=== PATIENT | female | born 1955 | race Caucasian/White ===

== ENCOUNTER → 2017-04-09 | Outpatient (CLI) | payer OTHER | LOC: FIMAGING 10:35 | PROVIDERS: ATTEND Nurse Practitioner | DX: R93.8 Abnormal findings on diagnostic imaging of other specified body structures (principal); R10.31 Right lower quadrant pain ==

== ENCOUNTER → 2017-05-14 | Outpatient (CLI) | payer OTHER ==
[~2017-05-14] MED LIST: IOPAMIDOL (ISOVUE-300) 100 ML BTL ONE
== END ==
LOC: FIMAGING 15:19
PROVIDERS: ATTEND Internal Medicine Gastroenterology
DX: K59.00 Constipation, unspecified (principal)
CPT/HCPCS: Q9967

== ENCOUNTER 2018-06-30 20:34 | Emergency (ER) | payer OTHER ==
--- NOTE | 2018-06-30 20:56 | EDPHY ---
HPI/HX/ROS/PE/MDM Narrative: CHIEF COMPLAINT: Right-sided abdominal pain HPI: The patient is a 62 y/o female complaining of a dull, achy, right-sided abdominal pain onset 1 year ago. Due to this pain, she has had numerous imaging and laboratory work ups over the last 8 months. She states that she doesn't have a PCP as she practices holistic medicine. She was most recently been seen by a Dr. Ramos in [place] and a printing roller handler at [facility]. She had a negative work up and was advised to have an oophorectomy. Insurance denied the surgery as well as a CA 125 test. Last weekend the pain occurred for 4 days and was associated with bloating, a decreased appetite, nausea, and inconsistent bowels. Today she is requesting a referral to see a gynecological oncologist, preferably Dr. Suellen Ramos in [place]. She denies taking any medication for the pain. No headache, chest pain, shortness of breath, urinary complaints, vaginal bleeding, numbness, paresthesias, fevers. REVIEW OF SYSTEMS: Aside from elements discussed in the HPI, a comprehensive 10 system review of systems is otherwise negative. PMH: Asthma, x4 SOCIAL HISTORY: Lives in [place], single, employed as an artist PHYSICAL EXAM: General: Patient is alert, in no acute distress. ENT: Eyes are normal to inspection. ENT inspection normal. Neck: Normal inspection. Full range of motion. Respiratory: No respiratory distress. Breath sounds normal bilaterally. Cardiovascular: Regular rate and rhythm. Strong peripheral pulses. Normal cap refill. Abdomen: RLQ tenderness to palpation. There are no peritoneal signs. There are normal bowel sounds. Back: Normal to inspection. No tenderness to palpation. Skin: Normal color. No rash. Warm and dry. Extremities: Normal appearance. Full range of motion. Neuro: Oriented x3. Normal motor function. Normal sensory function. ED Course: 2104: I discussed the risks and benefits associated with an abdominopelvic CT and US. She is comfortable with having laboratory studies in addition to the imaging studies. 2309: Reviewed case in person with Dr. Ambrose - he sees no sign of appendicitis or ovarian mass. Likely fibroid is unchanged from last year. Possible pelvic congestion syndrome. Discussed results with patient - offered US to further investigate pelvis but patient declines. I have agreed to give her a referral to [facility]. - Data Points Laboratory Results: Laboratory Results 06/30/18 21:18 06/30/18 06/30/18 21:25 21:18 WBC 4.95 10^3/uL 10^3/uL (3.80-9.50) RBC 3.89 10^6/uL L 10^6/uL (4.18-5.33) Hgb 13.3 g/dL g/dL (12.6-16.3) POC Hgb 14.3 gm/dL gm/dL (12.6-16.3) Hct 36.8 % L % (38.0-47.0) POC Hct 42 % % (38-47) MCV 94.6 fL fL (81.5-99.8) MCH 34.2 pg H pg (27.9-34.1) MCHC 36.1 g/dL g/dL (32.4-36.7) RDW 12.8 % % (11.5-15.2) Plt Count 285 10^3/uL 10^3/uL (150-400) MPV 9.9 fL fL (8.7-11.7) Neut % (Auto) 49.4 % % (39.3-74.2) Lymph % (Auto) 35.8 % % (15.0-45.0) Harper % (Auto) 8.3 % % (4.5-13.0) Eos % (Auto) 5.9 % % (0.6-7.6) Baso % (Auto) 0.4 % % (0.3-1.7) Nucleat RBC Rel Count 0.0 % % (0.0-0.2) Absolute Neuts (auto) 2.45 10^3/uL 10^3/uL (1.70-6.50) Absolute Lymphs (auto) 1.77 10^3/uL 10^3/uL (1.00-3.00) Absolute Monos (auto) 0.41 10^3/uL 10^3/uL (0.30-0.80) Absolute Eos (auto) 0.29 10^3/uL 10^3/uL (0.03-0.40) Absolute Basos (auto) 0.02 10^3/uL 10^3/uL (0.02-0.10) Absolute Nucleated RBC 0.00 10^3/uL 10^3/uL (0-0.01) Immature Gran % 0.2 % % (0.0-1.1) Immature Gran # 0.01 10^3/uL 10^3/uL (0.00-0.10) POC Sodium 137 mEq/L mEq/L (135-145) POC Potassium 3.2 mEq/L L mEq/L (3.3-5.0) POC Chloride 99 mEq/L mEq/L (97-110) POC BUN 19 mg/dL mg/dL (7-23) POC Creatinine 0.7 mg/dL mg/dL (0.6-1.0) POC Glucose 135 mg/dL H mg/dL (70-100) Medications Given: Discontinued Medications Ketorolac Tromethamine (Toradol) 15 mg IVP EDNOW ONE Stop: 06/30/18 21:59 Last Admin: 06/30/18 22:01 Dose: 15 mg Point of Care Test Results: Chemistry 06/30/18 21:25 POC Sodium 137 mEq/L mEq/L (135-145) POC Potassium 3.2 mEq/L L mEq/L (3.3-5.0) POC Chloride 99 mEq/L mEq/L (97-110) POC BUN 19 mg/dL mg/dL (7-23) POC Creatinine 0.7 mg/dL mg/dL (0.6-1.0) POC Glucose 135 mg/dL H mg/dL (70-100) ISTAT H&H 06/30/18 21:25 POC Hgb 14.3 gm/dL gm/dL (12.6-16.3) POC Hct 42 % % (38-47) General Time Seen by Provider: 06/30/18 20:55 Initial Vital Signs: Initial Vital Signs Temperature (C) 36.7 C 06/30/18 20:38 Heart Rate 81 06/30/18 20:38 Respiratory Rate 16 06/30/18 20:38 Blood Pressure 114/80 06/30/18 20:38 O2 Sat (%) 97 06/30/18 20:38 O2 Delivery Mode Room Air Allergies/Adverse Reactions: No Known Allergies Allergy (Verified 04/16/13 05:34) Home Medications: Medication Instructions Recorded Estrogens,Conjugated 06/30/18 Departure - Departure Disposition: Home, Routine, Self-Care Clinical Impression: Pelvic pain in female Condition: Good Instructions: Pelvic Pain in Women (ED) Additional Instructions: Follow-up with printing roller handler within 1-2 weeks. Return to the ED for fever, severe pain or other concerns. Referrals: NONE *PRIMARY CARE P,. [Primary Care Provider] - As per Instructions Cedrick Torres MD [Medical Doctor] - As per Instructions Report Scribed for: Aaron Sarabia Report Scribed by: Shirley Deshpande Date of Report: 06/30/18 Time of Report: 20:56 Physician Review and Approval Statement: Portions of this note were transcribed by an ED scribe. I personally performed the history, physical exam, and medical decision making; and confirm the accuracy of the information in the transcribed note.
[2018-06-30 21:29] LABS: PLATELET COUNT 285 10^3/uL (150-400)
[2018-06-30] MEDS ORDERED: IOPAMIDOL (ISOVUE-300) 100 ML BTL ONE (21:33)
[2018-06-30] MEDS ORDERED: KETOROLAC 30 MG/1 ML SDV IVP ONE (21:58)
[2018-06-30 23:28] VITALS: BP 116/70
== END 2018-06-30 23:26 | disposition home or self-care (01) ==
DX: R10.31 Right lower quadrant pain (principal); R10.2 Pelvic and perineal pain; J45.909 Unspecified asthma, uncomplicated
CPT/HCPCS: 82435-PO; 82565-PO; 82947-PO; 84132-PO; 84295-PO; 84520-PO; 85014-PO; 96374; J1885; Q9967

== ENCOUNTER → 2019-01-27 | Outpatient (CLI) | payer OTHER | LOC: BMCIMAGING 10:24 ==